=== PATIENT | female | born 1950 | race Caucasian/White ===

== ENCOUNTER → 2016-05-02 | Outpatient (CLI) | payer OTHER ==
--- NOTE | 2016-05-02 08:48 | RAD ---
Right breast ultrasound, 05/02/2016: History: Right breast nodule Recent mammograms demonstrated a smooth nodule at approximately the 3:00 location in the right breast. A targeted ultrasound exam of that region was performed. There is a small oval-shaped hypoechoic nodule seen at the 3:30 location located approximately 3 cm from the nipple. This probably corresponds to the mammographic abnormality. It measures 2 x 3 x 4 mm. Its margins are smooth. It is wider than it is tall. There is no significant posterior acoustic shadowing or enhancement. No internal vascularity could be defined. The features are relatively benign, suggesting a small complicated cyst or fibroadenoma. A circumscribed malignancy cannot be entirely excluded. IMPRESSION: Probably benign small right breast nodule as described above. Sonographic follow-up in 4-6 months is suggested. BI-RADS 3-probably benign findings
== END | disposition home or self-care (01) ==
LOC: KCIC US 08:01
PROVIDERS: ATTEND Obstetrics & Gynecology
DX: R92.8 Other abnormal and inconclusive findings on diagnostic imaging of breast (principal)
CPT/HCPCS: 76641

== ENCOUNTER → 2016-09-24 | Outpatient (CLI) | payer OTHER ==
--- NOTE | 2016-09-24 09:28 | RAD ---
Right breast ultrasound History: Follow-up of small breast mass. Comparison: Ultrasound of the right breast May 02, 2016. Bilateral screening mammogram April 16, 2016. Findings: Limited right breast ultrasound was performed by electroencephalographic technologist. In the right breast at 3:30, 3 cm from the nipple, there again is seen a well-circumscribed hypoechoic mass with some internal echogenicity. A maximum dimension is 3.5 mm (previously 4 mm). This is thought unchanged. Impression: No interval change in probably benign mass in the right breast at 3:30, 3 cm from the nipple. Recommend follow-up diagnostic bilateral mammogram and right breast ultrasound in March 2017. BI-RADS CATEGORY: 3 PROBABLY BENIGN FINDING(S)-SHORT INTERVAL FOLLOW-UP SUGGESTED RECOMMENDED FOLLOW-UP: 6M 6 MONTH FOLLOW-UP
== END | disposition home or self-care (01) ==
LOC: KCIC US 08:54
PROVIDERS: ATTEND Obstetrics & Gynecology
DX: N63 Unspecified lump in breast (principal)
CPT/HCPCS: 76641

== ENCOUNTER → 2017-04-01 | Outpatient (CLI) | payer OTHER ==
--- NOTE | 2017-04-01 14:10 | RAD ---
Indication: Six-month follow-up of right breast nodule. Correlation is made with prior right breast ultrasounds from 09/24/2016 and 05/02/2016. The tiny well-defined hypoechoic nodule at the 3:30 location of the right breast, 3 cm from the nipple is again noted. This is stable in size at 3 mm x 2 mm x 2 mm. No other mass is seen. Impression: Stable tiny hypoechoic nodule 3:30 location right breast. This shows one year of stability. This is consistent with a benign etiology. Return to routine screening mammography is recommended. BI-RADS Category 2, probably benign.
--- NOTE | 2017-04-01 14:51 | RAD ---
DATE: 04/01/2017 EXAM: DIGITAL DIAGNOSTIC BILATERAL HISTORY: Six-month follow-up right breast density. COMPARISON: 04/16/2016 04/07/2015. This study was interpreted with the benefit of Computerized Aided Detection (CAD). FINDINGS: The parenchymal pattern is stable. Benign-appearing nodules noted in both breasts appear stable. No new mass or malignant appearing microcalcifications are seen. There are benign calcifications bilaterally. The axillae are unremarkable. Breast Density: SCATTERED The breast parenchyma shows scattered fibroglandular densities. Breast parenchyma level B. IMPRESSION: Stable bilateral mammograms. No mammographic features suspicious for malignancy are identified. BI-RADS CATEGORY: 2 BENIGN FINDING(S) RECOMMENDED FOLLOW-UP: 12M 12 MONTH FOLLOW-UP PQRS compliance statement: Patient information was entered into a reminder system with a target due date 04/01/2018 for the next mammogram. Mammography is a sensitive method for finding small breast cancers, but it does not detect them all and is not a substitute for careful clinical examination. A negative mammogram does not negate a clinically suspicious finding and should not result in delay in biopsying a clinically suspicious abnormality. "Our facility is accredited by the [employer] Mammography [employer]."
== END | disposition home or self-care (01) ==
LOC: KCIC US 12:53
PROVIDERS: ATTEND Obstetrics & Gynecology
DX: N63.10 Unspecified lump in the right breast, unspecified quadrant (principal); R92.2 Inconclusive mammogram
CPT/HCPCS: 76641; G0204; 77066

== ENCOUNTER → 2018-04-02 | Outpatient (CLI) | payer OTHER ==
--- NOTE | 2018-04-02 12:57 | KCIC ---
Bilateral digital screening mammograms: Reason for examination: Routine screening. Comparison is made to previous studies dated 04/01/2017 and 04/16/2016. Interpretation was made with the benefit of CAD. The skin and nipples show no abnormalities. No abnormal axillary lymph nodes are seen. The breast parenchyma shows scattered fibroglandular density. (Breast density: Category B.) There continues to be a nodular density at the 6:00 B position of the right breast which is unchanged. There is also a nodule consistent with an intramammary lymph node at the 2:00 C position of the left breast which is unchanged. There are no new dominant masses, suspicious calcifications or architectural distortions. Impression: No evidence of malignancy. Recommend routine screening. BI-RADS Category 2: Benign. "Our facility is accredited by the [employer] Mammography [employer]." This patient's information has been entered into a reminder system for the patient to be notified with the results of her examination and a target date for the next mammogram. Electronically signed by: María Salcido MD (04/02/2018 12:53 PM) [id number]
== END | disposition home or self-care (01) ==
LOC: KCIC MAMMO 09:53
PROVIDERS: ATTEND Obstetrics & Gynecology
DX: Z12.31 Encounter for screening mammogram for malignant neoplasm of breast (principal)
CPT/HCPCS: 77067

== ENCOUNTER → 2019-04-07 | Outpatient (CLI) | payer OTHER, MEDICARE ==
--- NOTE | 2019-04-08 15:55 | KCIC ---
Bilateral digital screening mammograms with 3-D tomosynthesis: Reason for examination: Routine screening. Comparison is made to previous studies dated 04/02/2018 and 04/01/2017. Bilateral mammograms in CC and oblique projections were obtained with 2-D imaging and 3-D tomosynthesis imaging on a Siemens Inspiration unit and reviewed on the workstation. Interpretation was made with the benefit of CAD. The skin and nipples show no abnormalities. No abnormal axillary lymph nodes are seen. The breast parenchyma shows scattered fatty and fibroglandular density. (Breast density: Category B.) There continues to be a small intramammary lymph node at the 2:00 C position of the left breast. There is a small parenchymal asymmetry which appears to lie in the 5:00 position anteriorly in the right breast. There are no new dominant masses, suspicious calcifications or architectural distortion. Impression: No evidence of malignancy. Recommend routine screening. BI-RAD Category 2: Benign. "Our facility is accredited by the [employer] Mammography [employer]." This patient's information has been entered into a reminder system for the patient to be notified with the results of her examination and a target date for the next mammogram. Electronically signed by: María Salcido MD (04/08/2019 3:51 PM) [id number]
== END | disposition home or self-care (01) ==
LOC: KCIC MAMMO 09:18
PROVIDERS: ATTEND Obstetrics & Gynecology
DX: Z12.31 Encounter for screening mammogram for malignant neoplasm of breast (principal)
CPT/HCPCS: 77063; 77067

== ENCOUNTER → 2020-10-04 | Outpatient (CLI) | payer OTHER, MEDICARE ==
--- NOTE | 2020-10-04 10:00 | KCIC ---
EXAM: DUAL ENERGY X-RAY ABSORPTIOMETRY (DEXA). HISTORY: Postmenopausal screening. FINDINGS: The lowest measured T-score is -0.4 in the left hip, based on a bone mineral density of 0.8 98 g/cm^2. Refer to the worksheets for full detail. No comparison examinations are available. IMPRESSION: 1. Normal. Bone mineral density yields a T-score of -1.0 or greater. Fracture risk is low. 2. FRAX report: Not calculated. METHODOLOGY: Dual energy x-ray absorptiometry was performed to measure bone mineral density. The foll owing analysis is based on the 2019 Official Positions of the International Society for Clinical Dens itometry: Measurements of the hips and the average of L1-L4 are preferred. When the spine and/or hip cannot be feasibly measured or interpreted, or in the setting of hyperparathyroidism, distal radial bone minera l density may be measured. The lumbar spine T-score is based on the average bone mineral density of L1-L4. In the setting of art ifact or anatomic abnormality, some lumbar levels may be excluded, and the remaining levels used for calculation. A single lumbar level is not used for diagnosis, and if only a single level is available for assessment, another anatomic site will be used to assign a diagnosis. The hip T-score is based on the bone mineral density measurement of the femoral neck or total proxima l femur of either side, whichever is lowest. Bilateral mean values are not used for diagnosis. The forearm T-score is derived from 33% of the distal radius of the nondominant forearm. Electronically signed by: Mariama Hansen MD (10/04/2020 9:58 AM) [id number]
== END ==
LOC: KCIC DEXA 09:27
PROVIDERS: ATTEND Internal Medicine
DX: Z78.0 Asymptomatic menopausal state (principal)
CPT/HCPCS: 77080